=== PATIENT | female | born 1990 | race Caucasian/White ===

== ENCOUNTER 2018-07-01 14:38 | Inpatient (IN) | payer OTHER ==
[~2018-07-01] VITALS: Ht 165.1 cm; Wt 47.6 kg
[2018-07-09] MEDS ORDERED: INTESTINEX680 M1 PO (16:37)
[2018-07-09] MEDS ORDERED: FLAGYL500MG PO (16:37)
== END 2018-07-09 17:18 | disposition home or self-care (01) | DRG 757 ==
LOC: ER 14:38 → ICU-2 19:19 → ICU 07-06 10:52 → MEDI 07-07 13:50
PROC: 4A033R1 Measurement of Arterial Saturation, Peripheral, Percutaneous Approach (ICD-10-PCS; principal; 2018-07-01)
PROC: BW4GZZZ Ultrasonography of Pelvic Region (ICD-10-PCS; 2018-07-02)
DX: N76.0 Acute vaginitis (principal); E10.10 Type 1 diabetes mellitus with ketoacidosis without coma; E87.6 Hypokalemia; B95.1 Streptococcus, group B, as the cause of diseases classified elsewhere; B95.61 Methicillin susceptible Staphylococcus aureus infection as the cause of diseases classified elsewhere

== ENCOUNTER 2018-11-05 18:05 | Inpatient (IN) | payer OTHER ==
[~2018-11-05] VITALS: Ht 165.1 cm; Wt 45.4 kg
[~2018-11-05 18:05] MED LIST: FLAGYL500MG PO; INTESTINEX680 M1 PO
== END 2018-11-08 18:36 | disposition home or self-care (01) | DRG 639 ==
LOC: ER 18:05 → ICU-2 20:45 → SEC-K 11-06 11:25 → MEDJ 11-06 11:32
PROVIDERS: ADMIT Internal Medicine
PROC: 4A12X4Z Monitoring of Cardiac Electrical Activity, External Approach (ICD-10-PCS; principal; 2018-11-06)
DX: E10.10 Type 1 diabetes mellitus with ketoacidosis without coma (principal)

== ENCOUNTER 2019-02-05 11:26 | Emergency (ER) | payer OTHER ==
[~2019-02-05] VITALS: Ht 170.2 cm; Wt 56.7 kg
== END 2019-02-05 19:01 | disposition home or self-care (01) ==
LOC: ER 11:26
DX: K80.20 Calculus of gallbladder without cholecystitis without obstruction (principal); K29.70 Gastritis, unspecified, without bleeding